=== PATIENT | female | born 1995 | race Caucasian/White ===

== ENCOUNTER 2018-12-16 11:48 | Inpatient (IN) | payer BC ==
[2018-12-16] VITALS (38 sets, daily range): BP systolic 104–138; BP diastolic 55–94; PULSE 57–90; TEMP 97.6–98.2
[~2018-12-16] VITALS: Ht 170.2 cm; Wt 93.6 kg
--- NOTE | 2018-12-16 11:50 | NUR ---
Patient is a dirent admit from the office. Orders from Dr. Garvey- Admit patient, start penicillin (GBS + protocol) for prolonged rupture, and start pitocin. Dr. Winter will be taking over this patient.
--- NOTE | 2018-12-16 11:55 | NUR ---
Patient ambulatory to LR5, changed into gown, and FHR/TOCO placed and explained. Patient states she thinks her water broke around 1530 on Wednesday-12/14/18. She states "I just thought it was increased discharge and almost called to ask, but didnt want to be that first time lady" , patient states it has stayed a clear color throughout. Denies any vaginal bleeding or regular contractions. Plan of care discussed. 1215: IV placed in left hand/blood obtained and to lab/LRinfusing. Consents gone over and signed and assesment completed. Discussed the need for penicillin for prolonged rupture of membranes and Dr. Parham will want to draw labs on baby when born, patient agrees/understands.
[2018-12-16] MEDS ORDERED: FLINTSTONES COM1 CT1 PO (12:16)
--- NOTE | 2018-12-16 12:20 | NUR ---
FHR baseline 120bpm and patient sitting forward to sign consents and FHR tracing maternal heart rate for approx. 2-3 minutes.
[2018-12-16 13:32] LABS: BASO % 0.3 % (0.0-2.0); EOS % 0.2 % (0-4.0); GRAN # 10.1 (1.4-6.5); GRAN % 83.7 % (42.2-75.2); HEMATOCRIT 39.9 % (37.0-47.0); HEMOGLOBIN 13.6 g/dl (12.5-16.0); LYMPH # 1.5 (1.2-3.4); LYMPH % 12.3 % (20.0-51.0); MEAN CELL VOLUME 90 fl (80.0-100.0); MEAN CORPUSCULAR HEMOGLOBIN 31 pg (27.0-31.0); MEAN CORPUSCULAR HGB CONC 34 g/dl (33.0-37.0); MEAN PLATELET VOLUME 10.8 fl (7.4-10.4); MONO # 0.4 (0.1-0.6); MONO % 3.2 % (1.7-9.3); PLATELET COUNT 241 K/mm3 (130-400); RED BLOOD COUNT 4.44 M/mm3 (4.10-5.30); REDCELL DISTRIBUTION WIDTH-CV 13.7 % (11.5-14.5)
--- NOTE | 2018-12-16 15:12 | NUR ---
Patient on birthing ball at bedside. 1600: Patient sitting of edge of bed. 1655: Patient standing at edge of bed. 1725: Dr. Winter at bedside assessing patient and FHR strip. 1730: SVE- per physician and plan of care discussed. No new orders at this time.
--- NOTE | 2018-12-16 18:15 | NUR ---
Bedside report received from VLADIMIR Yadav. Pt sitting on EOB requesting epidural. LR bolus started infusing without difficulties. IRENE Drew notified. Plan of care explained to pt and family who verbalize understanding. Call light within reach. 1840: Montiors off and pt up to bathroom. 1845: Pt assisted to EOB. Monitors reapplied and tracing well. Pulse ox applied. Viki BONILLA at bedside for epidural placement and procedure explained. 1851: Test dose administered by IRENE Drew. See anesthesia records. 1855: Pt assisted to wedge left position. Plan of care and safety precautions explained to pt and family who verbalize understanding. 1911: Pt feeling a lot of right sided groin pain. Pt repositioned to RL. Viki BONILLA notified. 1917: SVE 9/100/+1. Pericare provided and pt back to right lateral position. Plan of care explained to pt. 1921: called and updated on pts status. See physican notification.
--- NOTE | 2018-12-16 20:08 | NUR ---
SVE C/+3. called and requested at hospital. FHR deceleration noted down to 80bpms lasting 300 seconds. [place], RN in room helping assist repositioning pt. Pt repositioned to LL, pitocin turned off, LR bolus already infusing. Pt repositioned back to RL, oxygen applied at 10L via oxymask, and scalp stimulation completed with return to FHR of 110bpm. 2014: called and updated on deceleration. Provider on the way to hospital at this time. FHR deceleration noted down to 60bpm at lowest point and lasting 60seconds, scalp stimulation continuing. 2027: at bedside for delivery. Pt assisted into footplates and pt begins pushing with provider. 2034: Spontaneous vaginal delivery of viable female by . Infant to mothers chest where dried and stimulated by nursery RN. Cord clamped X2 and cut by FOB. Care of assumed by Morales GILBERT. Fundus firm, midline and bleeding minimal. 2037: Spontaneous delivery of intact placenta by . Pitocin ressumed at 333mus/hr per protocol. [facility] catherization completed by provider. Second degree laceration and periurethral laceration repaired by . Pericare provided, pads changed, pt repositioned in bed and ice pack applied. Plan of care and safety precautions explained to pt and who verbalize understanding. Call light within reach. See anesthesia records and doctor dications.
[2018-12-17] VITALS: BP 115/62; PULSE 100; TEMP 98.7
[2018-12-17 04:00] VITALS: BP 117/55; PULSE 81; TEMP 98.4
[2018-12-17 07:36] VITALS: BP 125/76; PULSE 70; TEMP 98.6
[2018-12-17] MEDS ORDERED: PERCOCET 325 MG1 TA2 PO (09:57)
[2018-12-17] MEDS ORDERED: IBU600 MG PO (09:57)
[2018-12-17 11:17] VITALS: BP 115/71; PULSE 65; TEMP 98.5
[2018-12-17 16:00] VITALS: BP 121/77; PULSE 74; TEMP 97.9
[2018-12-17 21:07] VITALS: BP 128/67; PULSE 60; TEMP 98.5
[2018-12-18 09:40] VITALS: BP 118/67; PULSE 57; TEMP 97.9
== END 2018-12-18 18:35 | disposition home or self-care (01) | DRG 807 ==
LOC: LDR 11:48 → OB 12-17 00:10
PROVIDERS: ADMIT Student in an Organized Health Care Education/Training Program
PROC: 10E0XZZ Delivery of Products of Conception, External Approach (ICD-10-PCS; principal; 2018-12-16)
PROC: 0KQM0ZZ Repair Perineum Muscle, Open Approach (ICD-10-PCS; 2018-12-16)
PROC: 0UQMXZZ Repair Vulva, External Approach (ICD-10-PCS; 2018-12-16)
DX: O42.92 Full-term premature rupture of membranes, unspecified as to length of time between rupture and onset of labor (principal); Z37.0 Single live birth; O71.82 Other specified trauma to perineum and vulva; O99.214 Obesity complicating childbirth; O70.1 Second degree perineal laceration during delivery; Z3A.38 38 weeks gestation of pregnancy
CPT/HCPCS: J2540; J2590; J2791; J7120

== ENCOUNTER → 2019-01-16 | Outpatient (CLI) | payer BC ==
[~2019-01-16] MED LIST: FLINTSTONES COM1 CT1 PO; IBU600 MG PO; PERCOCET 325 MG1 TA2 PO
--- NOTE | 2019-01-16 13:53 | NUR ---
Pt, Haile Robin, presents for an outpatient lactations consult with one month old baby girl, Candace Kelly, because Candace has been "popping off and and some times has clicking" with . Candace was born on [birth year] and weighed 7#1.2 (3210 gms). Her weights at follow up appointments have been WNL as have her feeding frequency, voids and stools. She has nursed without difficulty but pt has noted that after about 1 week of life Candace started "popping off" during feedings but still acting hungry, and some times has clicking of her tongue. Pt is asking to have her evaluated for lip tie because her top lip rolls in while nursing and she seems to be more gassy. Today Candace weighs 8#10oz (3912 gms). She lataches easily to the right breast, the lip is able to be flanged out and Sherly stays at the breast for the entire feeding. On the left breast she also latches easily and without popping or clicking. Pt advised to massage and compress breast if Candace's effort dwindles but she still acts hungry if removed from the breast. LC notes baby does have a high palate but this does not seem to affect her latching or as pt denies pain and Candace has appropriate weight gain. After Candace has a weight gain of 2.8oz (80 gms). She appears content. POC: Continue ad fidelina. If popping or clicking happens try breast compression and massage to help milk flow increase. F/U: One month appt with Dr. Richardson on 01/19/19. Walk-in clinic as desired.
== END ==
LOC: LAC 13:05
DX: Z71.89 Other specified counseling (principal)